=== PATIENT | female | born 1975 | race Caucasian/White ===

== ENCOUNTER 2017-03-28 19:26 | Emergency (ER) | payer OTHER | END 2017-03-28 20:25 | disposition home or self-care (01) | LOC: D.ER 19:26 | DX: K08.89 Other specified disorders of teeth and supporting structures (principal); K04.7 Periapical abscess without sinus; S02.5XXA Fracture of tooth (traumatic), initial encounter for closed fracture; X58.XXXA Exposure to other specified factors, initial encounter; Y93.89 Activity, other specified; Y92.89 Other specified places as the place of occurrence of the external cause; I50.9 Heart failure, unspecified; I10 Essential (primary) hypertension; C64.9 Malignant neoplasm of unspecified kidney, except renal pelvis; F39 Unspecified mood [affective] disorder; R68.84 Jaw pain ==

== ENCOUNTER 2017-03-29 16:50 | Emergency (ER) | payer OTHER | END 2017-03-29 17:20 | disposition left against medical advice (07) | LOC: D.ER 16:50 | DX: Z02.9 Encounter for administrative examinations, unspecified (principal) ==

== ENCOUNTER 2018-12-21 12:03 | Emergency (ER) | payer MEDICAID ==
[~2018-12-21] VITALS: Ht 170.2 cm; Wt 136.4 kg
[2018-12-21 12:47] VITALS: Ht 170.2 cm; Wt 136.4 kg
[2018-12-21 13:50] LABS: BASOPHILS 0.1 % (0-2); EOSINOPHILS 4.3 % (0-7); HEMATOCRIT 38.1 % (36.0-48.0); HEMOGLOBIN 12.3 g/dL (12-16); IMMATURE GRANULOCYTES 0.3 % (0-5); LYMPHOCYTES 26.2 % (15-50); MCH 27.8 pg (26.0-34.0); MCHC 32.3 g/dL (31.0-37.0); MEAN PLATELET VOLUME 9.8 fL (7.4-10.4); NEUTROPHILS 57.1 % (40-80); PLATELET COUNT 272 10x3/uL (130-400); RBC 4.43 10x6/uL (4.00-5.40); RDW 13.5 % (11.5-14.5); WBC 7.5 10x3/uL (4.8-10.8)
[2018-12-21 14:14] LABS: ALBUMIN 3.1 g/dL (3.4-5.0); ALKALINE PHOSPHATASE 75 U/L (46-116); ALT (SGPT) 24 U/L (10-68); BILIRUBIN - TOTAL 0.27 mg/dL (0.2-1.3); CALC OSMOLALITY 268 mosm/kg (275-300); CALCIUM 8.4 mg/dL (8.5-10.1); CHLORIDE - SERUM 102 mmol/L (98-107); CREATININE - SERUM 0.6 mg/dL (0.6-1.3); GLUCOSE 87 mg/dL (74-106); POTASSIUM - SERUM 3.8 mmol/L (3.5-5.1); PROTEIN - SERUM 8.2 g/dL (6.4-8.2); SODIUM 136 mmol/L (136-145); UREA NITROGEN 6 mg/dL (7-18); eGFR NON AFRICAN AMERICAN > 90 mL/min (90-120)
[2018-12-21] MEDS ORDERED: SUDOGEST SINUS1 EACH PO (15:01)
[2018-12-21] MEDS ORDERED: MEDROL DOSE PACK4 MG PO (15:01)
[2018-12-21] MEDS ORDERED: ALBUTEROL SULF8.5 GM INH (15:01)
[2018-12-21 16:12] VITALS: BP 128/87
== END 2018-12-21 16:13 | disposition home or self-care (01) ==
LOC: D.ER 12:03
PROVIDERS: Family Medicine
DX: R05 Cough (principal); J30.1 Allergic rhinitis due to pollen

== ENCOUNTER 2019-03-02 20:14 | Emergency (ER) | payer MEDICAID ==
[~2019-03-02] VITALS: Ht 170.2 cm; Wt 136.4 kg
[~2019-03-02 20:14] MED LIST: ALBUTEROL SULF8.5 GM INH; MEDROL DOSE PACK4 MG PO; SUDOGEST SINUS1 EACH PO
[2019-03-02 20:41] VITALS: Ht 170.2 cm; Wt 136.4 kg
[2019-03-02] MEDS ORDERED: DOXYCYCLINE HY100 M2 PO (21:47)
[2019-03-02] MEDS ORDERED: MEDROL DOSE PACK4 MG PO (21:47)
[2019-03-02 22:08] VITALS: BP 148/76
== END 2019-03-02 22:12 | disposition home or self-care (01) ==
LOC: D.ER 20:14
DX: J06.9 Acute upper respiratory infection, unspecified (principal); R51 Headache

== ENCOUNTER 2019-05-08 16:18 | Emergency (ER) | payer MEDICAID ==
[~2019-05-08] VITALS: Ht 170.2 cm; Wt 127.3 kg
[~2019-05-08 16:18] MED LIST changes: +DOXYCYCLINE HY100 M2 PO
[2019-05-08 16:27] VITALS: Ht 170.2 cm; Wt 127.3 kg
[2019-05-08 16:59] LABS: BASOPHILS 0.2 % (0-2); EOSINOPHILS 3.3 % (0-7); HEMATOCRIT 36.6 % (36.0-48.0); HEMOGLOBIN 12.1 g/dL (12-16); IMMATURE GRANULOCYTES 0.3 % (0-5); MCH 28.1 pg (26.0-34.0); MCHC 33.1 g/dL (31.0-37.0); MCV 85.1 fL (80.0-100.0); MEAN PLATELET VOLUME 10.7 fL (7.4-10.4); MONOCYTES 9.1 % (2-11); NEUTROPHILS 65.1 % (40-80); PLATELET COUNT 287 10x3/uL (130-400); RDW 13.7 % (11.5-14.5)
[2019-05-08 17:01] LABS: APTT 25.2 SECONDS (22.8-39.4)
[2019-05-08 17:02] LABS: INR 1.03 (0.85-1.17)
[2019-05-08 17:44] LABS: ALBUMIN 3.1 g/dL (3.4-5.0); ALKALINE PHOSPHATASE 84 U/L (46-116); ALT (SGPT) 26 U/L (10-68); BILIRUBIN - TOTAL 0.32 mg/dL (0.2-1.3); CALC OSMOLALITY 279 mosm/kg (275-300); CALCIUM 8.1 mg/dL (8.5-10.1); CARBON DIOXIDE 29.5 mmol/L (21.0-32.0); CHLORIDE - SERUM 105 mmol/L (98-107); CREATININE - SERUM 0.8 mg/dL (0.6-1.3); GLUCOSE 118 mg/dL (74-106); POTASSIUM - SERUM 3.4 mmol/L (3.5-5.1); PROTEIN - SERUM 7.8 g/dL (6.4-8.2); SODIUM 141 mmol/L (136-145); UREA NITROGEN 7 mg/dL (7-18); eGFR NON AFRICAN AMERICAN 82 mL/min (90-120)
--- NOTE | 2019-05-08 17:47 | NUR ---
According to the suicide assessment she does not require 1:1 observation at this time.
[2019-05-08 17:54] LABS: CKMB 0.5 U/L (0.0-3.6); CREATINE KINASE 103 UL (21-215); MAGNESIUM - SERUM 1.8 mg/dL (1.8-2.4)
[2019-05-08 18:00] LABS: TROPONIN-I < 0.017 ng/mL (0.000-0.060)
[2019-05-08] MEDS ORDERED: ULTRAM50 MG PO (18:04)
[2019-05-08 19:09] VITALS: BP 135/86
== END 2019-05-08 19:10 | disposition home or self-care (01) ==
LOC: D.ER 16:18
PROVIDERS: Emergency Medicine
DX: R07.89 Other chest pain (principal)

== ENCOUNTER 2019-06-06 20:35 | Emergency (ER) | payer MEDICAID ==
[~2019-06-06] VITALS: Ht 170.2 cm; Wt 165.1 kg
[~2019-06-06 20:35] MED LIST changes: +ROBAXIN500 MG PO; +TORADOL10 MG PO; +ULTRAM50 MG PO
[2019-06-06 20:47] VITALS: Ht 170.2 cm; Wt 165.1 kg
[2019-06-06 21:17] LABS: BASOPHILS 0.3 % (0-2); EOSINOPHILS 3.9 % (0-7); HEMATOCRIT 39.3 % (36.0-48.0); HEMOGLOBIN 12.3 g/dL (12-16); IMMATURE GRANULOCYTES 0.3 % (0-5); LYMPHOCYTES 24.5 % (15-50); MCH 27.8 pg (26.0-34.0); MCHC 31.3 g/dL (31.0-37.0); MCV 88.7 fL (80.0-100.0); MEAN PLATELET VOLUME 9.7 fL (7.4-10.4); MONOCYTES 8.9 % (2-11); NEUTROPHILS 62.1 % (40-80); PLATELET COUNT 332 10x3/uL (130-400); RBC 4.43 10x6/uL (4.00-5.40); RDW 13.4 % (11.5-14.5)
[2019-06-06 21:33] LABS: ALKALINE PHOSPHATASE 101 U/L (46-116); ALT (SGPT) 24 U/L (10-68); BILIRUBIN - TOTAL 0.22 mg/dL (0.2-1.3); CALC OSMOLALITY 278 mosm/kg (275-300); CARBON DIOXIDE 32.1 mmol/L (21.0-32.0); CHLORIDE - SERUM 104 mmol/L (98-107); CREATININE - SERUM 0.7 mg/dL (0.6-1.3); GLUCOSE 99 mg/dL (74-106); POTASSIUM - SERUM 3.8 mmol/L (3.5-5.1); PROTEIN - SERUM 8.3 g/dL (6.4-8.2); SODIUM 141 mmol/L (136-145); UREA NITROGEN 7 mg/dL (7-18); eGFR NON AFRICAN AMERICAN > 90 mL/min (90-120)
[2019-06-06 21:36] LABS: APPEARANCE CLEAR (CLEAR); BILIRUBIN NEGATIVE (NEGATIVE); COLOR YELLOW (YELLOW); GLUCOSE NEGATIVE (NEGATIVE); HCG URINE NEGATIVE (NEGATIVE); KETONE NEGATIVE (NEGATIVE); NITRITE NEGATIVE (NEGATIVE); PROTEIN NEGATIVE (NEGATIVE); UROBILINOGEN NORMAL (NORMAL)
[2019-06-07 00:08] VITALS: BP 137/82
== END 2019-06-07 00:10 | disposition home or self-care (01) ==
LOC: D.ER 20:35
PROVIDERS: Family Medicine
DX: M62.830 Muscle spasm of back (principal); S39.012A Strain of muscle, fascia and tendon of lower back, initial encounter; X58.XXXA Exposure to other specified factors, initial encounter; I11.0 Hypertensive heart disease with heart failure; I50.9 Heart failure, unspecified

== ENCOUNTER 2019-07-29 15:37 | Emergency (ER) | payer MEDICAID ==
[~2019-07-29] VITALS: Ht 170.2 cm; Wt 127.3 kg
[2019-07-29 15:47] VITALS: Ht 170.2 cm; Wt 127.3 kg
[2019-07-29] MEDS ORDERED: ALBUTEROL SULF8.5 GM INH (17:27)
[2019-07-29 17:37] VITALS: BP 128/84
== END 2019-07-29 17:38 | disposition home or self-care (01) ==
LOC: D.ER 15:37
DX: J06.9 Acute upper respiratory infection, unspecified (principal); J20.9 Acute bronchitis, unspecified

== ENCOUNTER 2019-11-10 11:40 | Emergency (ER) | payer OTHER ==
[~2019-11-10] VITALS: Ht 170.2 cm; Wt 136.4 kg
[~2019-11-10 11:40] MED LIST changes: +NAPROSYN500 MG PO; +STERAPRED DS 1010 MG PO
[2019-11-10 11:46] VITALS: Ht 170.2 cm; Wt 136.4 kg
[2019-11-10] MEDS ORDERED: TAMIFLU75 MG PO (12:32)
[2019-11-10 13:30] VITALS: BP 138/74
== END 2019-11-10 13:30 | disposition home or self-care (01) ==
LOC: D.ER 11:40
DX: J11.1 Influenza due to unidentified influenza virus with other respiratory manifestations (principal)

== ENCOUNTER 2019-12-25 16:58 | Emergency (ER) | payer OTHER ==
[~2019-12-25] VITALS: Ht 170.2 cm; Wt 163.6 kg
[~2019-12-25 16:58] MED LIST changes: +TAMIFLU75 MG PO
[2019-12-25 17:03] VITALS: Ht 170.2 cm; Wt 163.6 kg
[2019-12-25 17:45] LABS: BASOPHILS 0.2 % (0-2); EOSINOPHILS 6.1 % (0-7); HEMATOCRIT 41.8 % (36.0-48.0); HEMOGLOBIN 12.8 g/dL (12-16); IMMATURE GRANULOCYTES 0.3 % (0-5); LYMPHOCYTES 18.9 % (15-50); MCH 27.3 pg (26.0-34.0); MCHC 30.6 g/dL (31.0-37.0); MCV 89.1 fL (80.0-100.0); MEAN PLATELET VOLUME 10.2 fL (7.4-10.4); MONOCYTES 8.6 % (2-11); NEUTROPHILS 65.9 % (40-80); PLATELET COUNT 309 10x3/uL (130-400); RBC 4.69 10x6/uL (4.00-5.40); RDW 14.2 % (11.5-14.5); WBC 12.5 10x3/uL (4.8-10.8)
[2019-12-25 17:56] LABS: CALC OSMOLALITY 271 mosm/kg (275-300); CALCIUM 8.2 mg/dL (8.5-10.1); CARBON DIOXIDE 28.3 mmol/L (21.0-32.0); CHLORIDE - SERUM 102 mmol/L (98-107); CREATININE - SERUM 0.7 mg/dL (0.6-1.3); GLUCOSE 99 mg/dL (74-106); POTASSIUM - SERUM 3.7 mmol/L (3.5-5.1); SODIUM 137 mmol/L (136-145); UREA NITROGEN 7 mg/dL (7-18); eGFR NON AFRICAN AMERICAN > 90 mL/min (90-120)
[2019-12-25 18:16] LABS: ALBUMIN 2.9 g/dL (3.4-5.0); ALKALINE PHOSPHATASE 90 U/L (30-120); ALT (SGPT) 24 U/L (10-68); BILIRUBIN - TOTAL 0.36 mg/dL (0.2-1.3); C-REACTIVE PROTEIN 2.8 mg/dL (0.0-0.9); FERRITIN 48 ng/mL (3-244); PRO BNP 93 pg/mL (0-125)
[2019-12-25] MEDS ORDERED: LEVOFLOXACIN500 MG PO (20:37)
[2019-12-25] MEDS ORDERED: TESSALON PERLE100 MG PO (20:37)
[2019-12-25] MEDS ORDERED: ATROVENT 0.02%2.5 ML UPD (20:37)
[2019-12-25] MEDS ORDERED: HYDROCHLOROTH12.5 M1 PO (20:37)
[2019-12-25 21:33] VITALS: BP 147/79
== END 2019-12-25 21:33 | disposition home or self-care (01) ==
LOC: D.ER 16:58
PROVIDERS: Emergency Medicine
DX: J40 Bronchitis, not specified as acute or chronic (principal); J45.901 Unspecified asthma with (acute) exacerbation; I50.9 Heart failure, unspecified

== ENCOUNTER 2020-01-02 21:33 | Emergency (ER) | payer OTHER ==
[~2020-01-02] VITALS: Ht 170.2 cm; Wt 163.3 kg
[~2020-01-02 21:33] MED LIST changes: +ATROVENT 0.02%2.5 ML UPD; +HYDROCHLOROTH12.5 M1 PO; +LEVOFLOXACIN500 MG PO; +TESSALON PERLE100 MG PO
[2020-01-02 21:59] VITALS: Ht 170.2 cm; Wt 163.3 kg
[2020-01-03 01:11] LABS: BASOPHILS 0.2 % (0-2); HEMOGLOBIN 12.4 g/dL (12-16); IMMATURE GRANULOCYTES 0.5 % (0-5); LYMPHOCYTES 23.9 % (15-50); MCH 27.6 pg (26.0-34.0); MCV 88.9 fL (80.0-100.0); MEAN PLATELET VOLUME 9.9 fL (7.4-10.4); MONOCYTES 10.2 % (2-11); NEUTROPHILS 59.2 % (40-80); PLATELET COUNT 294 10x3/uL (130-400); RDW 14.2 % (11.5-14.5); WBC 9.8 10x3/uL (4.8-10.8)
[2020-01-03 01:21] LABS: CALC OSMOLALITY 270 mosm/kg (275-300); CALCIUM 8.1 mg/dL (8.5-10.1); CARBON DIOXIDE 27.8 mmol/L (21.0-32.0); CHLORIDE - SERUM 103 mmol/L (98-107); CREATININE - SERUM 0.8 mg/dL (0.6-1.3); GLUCOSE 130 mg/dL (74-106); POTASSIUM - SERUM 4.2 mmol/L (3.5-5.1); SODIUM 135 mmol/L (136-145); UREA NITROGEN 9 mg/dL (7-18); eGFR NON AFRICAN AMERICAN 82 mL/min (90-120)
[2020-01-03 01:36] LABS: ALBUMIN 2.8 g/dL (3.4-5.0); ALKALINE PHOSPHATASE 87 U/L (30-120); ALT (SGPT) 24 U/L (10-68); BILIRUBIN - TOTAL 0.29 mg/dL (0.2-1.3); PRO BNP 88 pg/mL (0-125); PROTEIN - SERUM 7.8 g/dL (6.4-8.2); THYROID STIMULATING HORMONE 1.81 uIU/mL (0.36-3.74)
[2020-01-03] MEDS ORDERED: TESSALON PERLE100 MG PO (01:49)
[2020-01-03 02:10] VITALS: BP 132/69
== END 2020-01-03 02:10 | disposition home or self-care (01) ==
LOC: D.ER 21:33
PROVIDERS: Family Medicine
DX: R05 Cough (principal); J45.909 Unspecified asthma, uncomplicated; I50.9 Heart failure, unspecified; M79.89 Other specified soft tissue disorders

== ENCOUNTER 2020-04-24 17:48 | Emergency (ER) | payer OTHER ==
[~2020-04-24] VITALS: Ht 170.2 cm; Wt 177.7 kg
[2020-04-24 17:54] VITALS: Ht 170.2 cm; Wt 177.7 kg
[2020-04-24 18:30] LABS: BASOPHILS 0.1 % (0-2); EOSINOPHILS 2.5 % (0-7); HEMATOCRIT 39.7 % (36.0-48.0); HEMOGLOBIN 12.4 g/dL (12-16); IMMATURE GRANULOCYTES 0.2 % (0-5); LYMPHOCYTES 22.2 % (15-50); MCH 27.1 pg (26.0-34.0); MCHC 31.2 g/dL (31.0-37.0); MCV 86.9 fL (80.0-100.0); MEAN PLATELET VOLUME 9.5 fL (7.4-10.4); MONOCYTES 8.1 % (2-11); NEUTROPHILS 66.9 % (40-80); PLATELET COUNT 309 10x3/uL (130-400); RBC 4.57 10x6/uL (4.00-5.40); RDW 13.9 % (11.5-14.5)
[2020-04-24 18:41] LABS: CALC OSMOLALITY 274 mosm/kg (275-300); CALCIUM 8.1 mg/dL (8.5-10.1); CARBON DIOXIDE 30.9 mmol/L (21.0-32.0); CHLORIDE - SERUM 103 mmol/L (98-107); CREATININE - SERUM 0.9 mg/dL (0.6-1.3); GLUCOSE 98 mg/dL (74-106); POTASSIUM - SERUM 3.6 mmol/L (3.5-5.1); SODIUM 138 mmol/L (136-145); UREA NITROGEN 10 mg/dL (7-18); eGFR NON AFRICAN AMERICAN 71 mL/min (90-120)
[2020-04-24 18:45] LABS: APTT 25.9 SECONDS (22.8-39.4); INR 0.97 (0.85-1.17); PROTIME 12.8 SECONDS (11.6-15.0)
[2020-04-24 18:56] LABS: ALBUMIN 2.8 g/dL (3.4-5.0); ALKALINE PHOSPHATASE 101 U/L (30-120); ALT (SGPT) 36 U/L (10-68); BILIRUBIN - TOTAL 0.27 mg/dL (0.2-1.3); CKMB 0.5 U/L (0.0-3.6); CREATINE KINASE 93 UL (21-215); MAGNESIUM - SERUM 1.7 mg/dL (1.8-2.4); PROTEIN - SERUM 7.8 g/dL (6.4-8.2)
[2020-04-24 18:57] LABS: TROPONIN-I < 0.017 ng/mL (0.000-0.060)
[2020-04-24 20:54] VITALS: BP 145/92
== END 2020-04-24 20:55 | disposition home or self-care (01) ==
LOC: D.ER 17:48
PROVIDERS: Family Medicine
DX: R07.89 Other chest pain (principal); E11.9 Type 2 diabetes mellitus without complications; J45.909 Unspecified asthma, uncomplicated; R06.02 Shortness of breath; R05 Cough; R51 Headache; R50.9 Fever, unspecified; R53.81 Other malaise

== ENCOUNTER → 2020-12-04 07:54 | Outpatient (CLI) | payer OTHER ==
[2020-04-24 17:54] VITALS: BMI 61.4
== END | disposition home or self-care (01) ==
LOC: D.LAB 07:54
PROVIDERS: ATTEND Internal Medicine Pulmonary Disease
DX: Z11.52 Encounter for screening for COVID-19 (principal)

== ENCOUNTER → 2020-12-06 10:28 | Outpatient (CLI) | payer OTHER ==
[2020-04-24 17:54] VITALS: BMI 61.4
[2020-12-06 12:13] LABS: BASOPHILS 0.2 % (0-2); HEMATOCRIT 39.5 % (36.0-48.0); HEMOGLOBIN 12.5 g/dL (12-16); IMMATURE GRANULOCYTES 0.3 % (0-5); LYMPHOCYTE ABS# 2.38 10x3/uL (1.18-3.74); LYMPHOCYTES 24.2 % (15-50); MCH 27.6 pg (26.0-34.0); MCHC 31.6 g/dL (31.0-37.0); MCV 87.2 fL (80.0-100.0); MONOCYTES 7.3 % (2-11); NEUTROPHIL ABS# 6.38 10x3/uL (1.56-6.13); PLATELET COUNT 306 10x3/uL (130-400); RBC 4.53 10x6/uL (4.00-5.40); RDW 14.1 % (11.5-14.5); WBC 9.8 10x3/uL (4.8-10.8)
== END | disposition home or self-care (01) ==
LOC: D.RT 10-15 08:00
PROVIDERS: ATTEND Internal Medicine Pulmonary Disease
DX: J45.40 Moderate persistent asthma, uncomplicated (principal)